=== PATIENT | male | born 1980 | race Caucasian/White ===

== ENCOUNTER 2017-02-16 06:38 | Emergency (ER) | payer BC ==
[~2017-02-16] VITALS: Ht 188 cm; Wt 117.3 kg
[2017-02-16] MEDS ORDERED: FIORICET,ESG1 TABLET PO (07:16)
[2017-02-16] MEDS ORDERED: MUCUS RELIEF600 M1 PO (07:27)
[2017-02-16 07:30] LABS: HEMATOCRIT 44.4 % (38.0-50.0); MCH 30.6 PG (29.0-34.0); MCHC 34.7 G/DL (30.0-36.0); MCV 88.1 FL (86-99); MEAN PLAT.VOLUME 11.2 uM^3 (9.0-12.4); PLATELET COUNT 219 K/uL (156-360); RBC DIS.WIDTH-SD 38.3 % (39-53); RED BLOOD COUNT 5.04 M/uL (4.00-5.50); WHITE BLOOD COUNT 6.7 K/uL (4.1-10.2)
[2017-02-16 08:06] LABS: ANION GAP 8 MEQ/L (2-14); CHLORIDE 105 MEQ/L (99-109); POTASSIUM 4.4 MEQ/L (3.7-5.4); SAMPLE HEMOLYSIS CHECK 0; SAMPLE ICTERIC CHECK 0; SAMPLE LIPEMIA CHECK 0; SODIUM 141 MEQ/L (136-147)
[2017-02-16 08:11] LABS: GFR ESTIMATE (CALCULATED) > 59 mL/min/; GLUCOSE 99 mg/dL (70-99); UREA NITROGEN (BUN) 16 mg/dL (9-23)
[2017-02-16 09:07] VITALS: BP 111/83
== END 2017-02-16 09:10 | disposition home or self-care (01) ==
LOC: EME 06:38
PROVIDERS: Emergency Medicine
DX: G43.B0 Ophthalmoplegic migraine, not intractable (principal); J45.909 Unspecified asthma, uncomplicated
CPT/HCPCS: 80048; 85027; 99281; 99283